=== PATIENT | male | born 1980 | race Asian ===

== ENCOUNTER 2021-04-16 04:50 | Emergency (ER) | payer OTHER ==
[2021-04-30 13:34] LABS: PLATELET COUNT 236 K/uL (142-355)
[2021-04-30 13:35] LABS: POTASSIUM 3.7 mmol/L (3.6-5.2); SODIUM 143 mmol/L (136-145)
== END 2021-04-16 09:54 | disposition home or self-care (01) ==
LOC: ED 04:50
PROVIDERS: Emergency Medicine
DX: I10 Essential (primary) hypertension (principal); K43.9 Ventral hernia without obstruction or gangrene; E66.8 Other obesity; F17.290 Nicotine dependence, other tobacco product, uncomplicated; X50.0XXA Overexertion from strenuous movement or load, initial encounter; Y92.511 Restaurant or cafe as the place of occurrence of the external cause
CPT/HCPCS: 36415; 80048; 84484; 85027; 93005; 96374; 99284; J3490; Q9963

== ENCOUNTER 2021-06-05 15:56 | Emergency (ER) | payer OTHER ==
[~2021-06-05] VITALS: Ht 175.3 cm; Wt 104.3 kg
[2021-06-05 16:02] VITALS: BP 183/125; TEMP 97.8
== END 2021-06-05 16:36 | disposition home or self-care (01) ==
LOC: ED 15:56
DX: Z20.822 Contact with and (suspected) exposure to COVID-19 (principal)
CPT/HCPCS: 87635; 99282; U0003